=== PATIENT | male | born 1945 | race Caucasian/White ===

== ENCOUNTER 2019-01-17 14:51 | Inpatient (IN) | payer BC, OTHER ==
[~2019-01-17] VITALS: Ht 167.6 cm; Wt 79.8 kg
[2019-01-17 14:57] VITALS: Ht 167.6 cm; Wt 79.8 kg
[2019-01-17 15:35] LABS: BASOPHIL % 0.3 % (0-2); PLATELET COUNT 316 x10^3mcL (130-400)
--- NOTE | 2019-01-17 15:36 | NUR ---
10MG CARDIZEM GIVEN @ 1526, INEFFECTIVE HR 122-155. 2ND CARDIZEM TO BE GIVEN
[2019-01-17 15:37] LABS: CALCIUM 9.7 mg/dL (8.5-10.1); CARBON DIOXIDE 25.5 mmol/L (21-32); CHLORIDE SERUM 100 mmol/L (98-107); CREATININE SERUM 1.3 mg/dL (0.7-1.3); GLUCOSE SERUM 285 mg/dL (74-106); POTASSIUM SERUM 4.1 mmol/L (3.5-5.1); SODIUM SERUM 137 mmol/L (136-145)
[2019-01-17 15:44] LABS: ALKALINE PHOSPHATASE 104 U/L (46-116); ALT/SGPT 28 U/L (16-63); AST/SGOT 24 U/L (15-37); BILIRUBIN TOTAL 1.71 mg/dL (0.20-1.00); TOTAL PROTEIN, SERUM 7.9 g/dL (6.4-8.2)
--- NOTE | 2019-01-17 15:50 | NUR ---
2ND CARDIZEM DOSE GIVEN, INEFFECTIVE. 3RD TO BE GIVEN
[2019-01-17 15:55] LABS: ALBUMIN 3.2 g/dL (3.4-5.0)
--- NOTE | 2019-01-17 16:05 | NUR ---
DR. HOLLAND AND PRIMARY NURSE MARIANNE INFORMED OF LACTIC ACID 2.6
--- NOTE | 2019-01-17 16:15 | NUR ---
2ND CARDIZEM GIVEN @ 1605, INEFFECTIVE HR 118-149. 3RD DOSE TO BE GIVEN IF I INEFFECTIVE, START DRIP PER .
--- NOTE | 2019-01-17 16:36 | NUR ---
10MG LABETALOL GIVEN, INEFFECTIVE.
--- NOTE | 2019-01-17 16:36 | NUR ---
3RD CARDIZEM GIVEN, INEFFECTIVE. HOLD DRIP AND TO GIVEN LABETALOL 10MG. BEGIN CARDIZEM DRIP IF INEFFECTIVE
--- NOTE | 2019-01-17 16:40 | NUR ---
JAYSHREE: TO GO AHEAD AND START DRIP. PT WILL BE GOING TO ICU
--- NOTE | 2019-01-17 17:28 | NUR ---
TITRATION CARDIZEM 10MG/HR.
--- NOTE | 2019-01-17 17:30 | NUR ---
PT TO CT VIA CRISTINA GARRIDO PROTOCOLS. JAYSHREE DRIP AND MONITOR. RN AT BEDSIDE
--- NOTE | 2019-01-17 17:54 | NUR ---
PT RETURN FROM CT. NO S/S OF DISTRESS NOTED. RN WILL INCREASE CARDIZEM DRIP TO 15MG/HR MAX DOSAGE. MADE AWARE
[2019-01-17] MEDS ORDERED: LANTUS SOLOS100 U/M1 SQ (18:51)
[2019-01-17] MEDS ORDERED: GLYBURIDE AND M PO (18:52)
[2019-01-17] MEDS ORDERED: VICTOZA6 MG/M1 SQ (18:52)
[2019-01-17] MEDS ORDERED: LIPI20 PO (18:53)
[2019-01-17] MEDS ORDERED: COZAAR100 MG PO (18:53)
[2019-01-17] MEDS ORDERED: NOR10 PO (18:53)
[2019-01-17] MEDS ORDERED: TOPROL XL100 MG PO (18:54)
[2019-01-17] MEDS ORDERED: ASPIR 8181 MG PO (18:54)
[2019-01-17] MEDS ORDERED: ELIQUIS2.5 MG PO (18:54)
[2019-01-17] MEDS ORDERED: PRE30 PO (18:55)
[2019-01-17] MEDS ORDERED: MULTIVITAMIN1 SGL PO (18:55)
[2019-01-17] MEDS ORDERED: PHARMASSURE VI500 MG PO (18:56)
[2019-01-17] MEDS ORDERED: NATURE'S BLEND400 IU PO (18:56)
[2019-01-17] MEDS ORDERED: VITAMIN A10000 UNI1 PO (18:57)
--- NOTE | 2019-01-17 18:59 | NUR ---
MED REC COMPLETED USING LIST IN PT'S PHONE. PT STATES TAKING VITAMIN A INSTEAD OF EYE HEALTH TAB PT STATES ELIQUIS DOSE ON PHONE IS LIKELY MISPRINT
[2019-01-17] MEDS ORDERED: ZOF4 PO (19:00)
[2019-01-17] MEDS ORDERED: NOR10T PO (19:00)
--- NOTE | 2019-01-17 19:00 | NUR ---
REPORT GIVEN TO MADELEINE NETTLES
[2019-01-17] MEDS ORDERED: TYLENOL PO (19:01)
[2019-01-17] MEDS ORDERED: LIDC TOP (19:01)
[2019-01-17] MEDS ORDERED: [UNRECOGNIZED DRUG - OTHER] TOP (19:02)
[2019-01-17] MEDS ORDERED: HYDROCHLOROTH12.5 M2 PO (19:03)
[2019-01-17] MEDS ORDERED: LUMIGAN2.5 M1 OU (19:04)
[2019-01-17] MEDS ORDERED: ELIQUIS5 MG PO (19:06)
--- NOTE | 2019-01-17 19:07 | NUR ---
AFTER COMPLETING MED REC OFF LIST OFF PT'S PHONE, PT SHOWED ME MED REC FROM RECENT DISCHARGE & STATES IT IS MORE CURRENT. CHANGES MADE TO [facility] REC.
--- NOTE | 2019-01-17 19:20 | NUR ---
REPORT GIVEN BY AGENCY, RN FOR CONTINUED CARE OF PATIENT.
[2019-01-17 19:25] LABS: microscopic required? NO
[2019-01-17 19:29] LABS: CHOLESTEROL/HDL RATIO 3.9; MAGNESIUM 1.7 mg/dL (1.8-2.4); PHOSPHOROUS 3.8 mg/dL (2.5-4.9)
[2019-01-17 19:30] LABS: UA SPECIFIC GRAVITY <=1.005 (1.005-1.035); urine erythrocyte NEGATIVE (NEGATIVE)
[2019-01-17 19:39] LABS: FREE T4 1.81 ng/dL (0.76-1.46); FREE THYROXINE INDEX 3.6 ug/dL (1.4-4.5); T4(THYROXINE) 9.6 ug/dL (4.7-13.3)
[2019-01-17 19:47] LABS: AMPHETAMINE QUAL UR NONE DETECTED (See below)
[2019-01-17 19:56] LABS: T3 TOTAL 0.81 ng/mL
--- NOTE | 2019-01-17 20:38 | NUR ---
PROVIDED REPORT TO THO MARIE FOR CONTINUED CARE OF PATIENT.
--- NOTE | 2019-01-17 20:50 | NUR ---
PT IS ALERT AND ORIENTED X4. PERRLA PRESENT. PT IS BREATHING E.U ON 2L NC. PULSES ARE MODERATE X4. CAP REFILL <3 SECONDS X4. SKIN IS WARM AND CONSISTENT WITH ETHNICITY. PERIPHERAL IV TO LFA AND RAC PATENT, DRESSING CDI. CARDIZEM INFUSING AT 15 MG/HR. S1 S2 HEART SOUNDS AUSCULTATED, SINUS TACHY. ABD IS SOFT AND ROUNDED WITH ACTIVE BOWEL SOUNDS X4Q. PT VOIDS FREELY USING URINAL. PT HAS SURIGICAL INCISION TO LEFT KNEE AFTER KNEE REPLACEMENT. PRASANTH IN PLACE, DRESSING CDI. KNEE IS HOT AND RED, BUT ALL DIAGNOSTICS NEGATIVE. ALL QUESTIONS AND CONCERNS ANSWERED. WILL CONTINUE TO MONITOR.
[2019-01-17 22:27] VITALS: BP 134/87
--- NOTE | 2019-01-17 23:07 | NUR ---
RT AT BEDSIDE FOR EKG.
--- NOTE | 2019-01-18 03:30 | NUR ---
SPOKE TO DR. FERREIRA. DOCTOR STATED THAT IF THE HR REMAINS CONSISTENTLY ABOVE 130, THEN TO CALL HIM TO POSSIBLY CHANGE CARDIZEM TO AMIODARONE.
[2019-01-18 05:22] LABS: BASOPHIL % 0.3 % (0-2); PLATELET COUNT 324 x10^3mcL (130-400); RED CELL DISTRIBUTION WIDTH 14.2 % (11.5-14.5)
--- NOTE | 2019-01-18 05:41 | NUR ---
PARKING ASSISTANT AT BEDSIDE FOR ASSESSMENT. ALL QUESTIONS AND CONCERNS ANSWERED.
[2019-01-18 06:04] LABS: CALCIUM 9.4 mg/dL (8.5-10.1); CARBON DIOXIDE 24.6 mmol/L (21-32); CHLORIDE SERUM 102 mmol/L (98-107); CREATININE SERUM 1.1 mg/dL (0.7-1.3); GLUCOSE SERUM 178 mg/dL (74-106); MAGNESIUM 1.6 mg/dL (1.8-2.4); PHOSPHOROUS 3.5 mg/dL (2.5-4.9); POTASSIUM SERUM 3.9 mmol/L (3.5-5.1); SODIUM SERUM 139 mmol/L (136-145)
--- NOTE | 2019-01-18 07:15 | NUR ---
RECEIVED PT'S REPORT FROM LEAVING NURSE. PT REST ON BED, EASILY AROUSABLE VIA AUDITORY STIMULI. PT DENIED CHEST PAIN AND PAPITATION. PT BREATHING ON RA, EVEN, UNLABORED. NO COMPLAIN OF PAIN AT THIS TIME. PT IS ON CARDIZEN 15MG/HR, HR AROUND 100 BPM. NS 100ML/HR INFUSING. WILL CONTINUE TO MONITOR.
[2019-01-18 07:51] VITALS: BP 146/72
--- NOTE | 2019-01-18 07:51 | NUR ---
ECHOCARDIOGRAM PENDING-HAVING BREAKFAST
--- NOTE | 2019-01-18 10:05 | NUR ---
PT'S AT BED SIDE. PT'S HR STABLE AROUND 80-90. DECREASED CARDIZEN FROM 15MG/HR TO 10MG/HR. PT DENIED ANY CHEST DISCOMFORT. WILL CONTINUE TO MONITOR.
--- NOTE | 2019-01-18 10:47 | NUR ---
PT'S HR STABLE AROUND 80-90 BPM, DECREASED CARDIZEN DRIP FROM 10MG/HR TO 5MG/HR. WILL CONTINUE TO MONITOR.
--- NOTE | 2019-01-18 11:07 | NUR ---
DR FERRIS AND RESIDENTS ROUNDING. PATIENT AND PROVIDED UPDATES BEDSIDE WITH ALL QUESTIONS AND CONCERNS ADDRESSED.
--- NOTE | 2019-01-18 12:00 | NUR ---
PT COMPLAIN OF INCREASING PAIN ON L KNEE. NORCO GIVEN PER PRN ORDER.
[2019-01-18 12:01] VITALS: BP 133/72
--- NOTE | 2019-01-18 13:04 | NUR ---
PT'S HR STABLE, 72 BPM, STOP CARDIZEN DRIP AT THIS TIME. PT DENIED CHEST DISCOMFORT. WILL CONTINUE TO MONITOR.
--- NOTE | 2019-01-18 15:09 | NUR ---
DR PRESLEY AT BEDSIDE TO ASSESS PATIENT. UPDATES PROVIDED BY NURSING. NO CHANGE IN ORDERS. WILL CONTINUE TO MONITOR.
[2019-01-18 16:46] VITALS: BP 130/79
--- NOTE | 2019-01-18 17:34 | NUR ---
PT IS GOING TO TRANSFER TO [facility] [address]. PT'S REPORT GIVEN TO RECEIVING NURSE IGOR. PT WILL BE TRANSFERED VIA WHEELCHAIR WITH TELE MONITOR.
[2019-01-18 17:55] VITALS: BP 130/67
--- NOTE | 2019-01-18 17:55 | NUR ---
RECEIVED PT FROM ICU. PT ARRIVED TO UNIT IN WHEELCHAIR. PT AWAKE, ALERT A/OX4. PT ON ROOM AIR WITH NO RESP DISTRESS NOTED, LUNGS CTA. IV ACCESS LFA/RAC CDI. PERIPHERAL PULSES PALPABLE, NO EDEMA NOTED. ACTIVE BOWEL SOUNDS NOTED, PT REPORTS NO BM X 8 DAYS. NO ABDOMINAL PAIN NOTED. NO ISSUES URINATING. PT S/P LEFT KNEE REPLACEMENT 6 DAYS AGO, BANDAGE C/D/I, PAIN TOLERABLE AT THIS TIME. PT MEDICATED IN ICU BEFORE TRANSFER. PT ORIENTED TO ROOM. FAMILY AT BEDSIDE. SAFETY MEASURES IN PLACE, BED LOW AND LOCKED. CALL LIGHT WITHIN REACH.
--- NOTE | 2019-01-18 18:33 | NUR ---
PT STABLE AT THIS TIME. NO ACUTE DISTRESS NOTED. WILL CONTINUE TO MONITOR AND ENDORSE CARE TO MAINTENANCE FITTER.
--- NOTE | 2019-01-18 19:25 | NUR ---
CARE ASSUMED FROM OUTGOING RN. PT RESTING COMFORTABLY IN BED. FAMILY AT BEDSIDE. NO ACUTE DISTRESS NOTED. EVEN AND UNLABORED RESPIRATIONS ON RA. ON TELE #7. IVS INTACT. DRESSING TO LEFT KNEE CDI, ELEVATED WITH PILLOW. BED IN LOWEST POSITION. SIDE RAILS UPX2. WILL CONTINUE TO MONITOR.
[2019-01-18 20:39] VITALS: BP 123/70
--- NOTE | 2019-01-19 00:13 | NUR ---
PT RESTING COMFORTABLY IN BED. AT BEDSIDE. EVEN AND UNLABORED RESPITATIONS ON RA. IVS PATENT AND INTACT, PT REQUESTED FOR ONE IV TO BE REMOVED. INFORMED PT THERE WILL BE POSSIBILITY OF REINSERTING ANOTHER IV IF ONE WAS TO GO BAD. PT OPTED TO KEEP BOTH IV. PT C/O PAIN TO LEFT KNEE. MEDICATED PER EMAR. BED IN LOWEST POSITION. SIDE RAILS UPX2. CALL LIGHT WITHIN REACH. WILL CONTINUE TO MONITOR.
[2019-01-19 05:04] VITALS: BP 123/64
--- NOTE | 2019-01-19 06:20 | NUR ---
PT SLEPT COMFORTABLY IN INTERVALS THROUGHOUT THE SHIFT. IS AT BEDSIDE. NO ACUTE CHANGES NOTED. EVEN AND UNLABORED RESPIRTAIONS ON RA. ON TELE #7 READING SR 82. IVS SALINE LOCKED, PATENT AND INTACT. ALL NEEDS TENDED TO AND MET. ALL SCHEDULED MEDICATIONS GIVEN. C/O LEFT KNEE PAIN MEDICATED PER EMAR. BLOOD SUGARS CHECKED, 169 AND 164, COVERED PER SLIDING SCALE. LEFT KNEE INCISION, CDI. BED IN LOWEST POSITION. SIDE RAILS UPX2. CALL LIGHT WITHIN REACH. WILL ENDORSE TO ONCOMING SHIFT.
[2019-01-19 06:26] LABS: BASOPHIL % 0.4 % (0-2); PLATELET COUNT 353 x10^3mcL (130-400); RED CELL DISTRIBUTION WIDTH 14.3 % (11.5-14.5)
--- NOTE | 2019-01-19 07:30 | NUR ---
PT ENDORSE TO ME THIS MORNING, SITTING UP IN BED. AA/O X4, BREATHING EVEN AND UNLABORED ON RA, NO ACUTE RESP DISTRESS OR SOB NOTED/ LUNGS CLEAR. TELE 7 SR NOTED.PULSES PRESENT TO BLE/ L KNEE REAPLACEMENT X6 DAYS AGO STABLES AND BANDAGE INPLACE, CDI/ EDEMA NOTED TO KNEE. GEN WEAKNESS DUE TO L KNEE REPLACEMENT/ USES WALKER AT HOME FOR SP SX. IS C/ O L KNEEE PAIN, WILL MEDICATE. IV TO THE LFA AND RAC BOTH INTACT AND PATENT. WILL CONTINUE TO MONITOR. AT BEDSIDE.
[2019-01-19 08:00] LABS: CALCIUM 9.3 mg/dL (8.5-10.1); CARBON DIOXIDE 26.8 mmol/L (21-32); CHLORIDE SERUM 103 mmol/L (98-107); CREATININE SERUM 1.1 mg/dL (0.7-1.3); GLUCOSE SERUM 177 mg/dL (74-106); MAGNESIUM 1.9 mg/dL (1.8-2.4); PHOSPHOROUS 3.1 mg/dL (2.5-4.9); SODIUM SERUM 140 mmol/L (136-145)
[2019-01-19 08:10] VITALS: BP 115/76
--- NOTE | 2019-01-19 08:11 | NUR ---
PT C/O LEFT LEG PAIN 3/10, MEDICATED PER EMAR.
[2019-01-19 09:04] VITALS: BP 138/77
[2019-01-19 11:52] VITALS: BP 116/69
--- NOTE | 2019-01-19 16:03 | NUR ---
PT TOLERATED 100% OF HIS LUNCH. IS C/O LEFT KNEE PAIN, WILL MEDICATED PER EMAR.
[2019-01-19 16:07] VITALS: BP 128/77
--- NOTE | 2019-01-19 17:54 | NUR ---
PER PT REQUEST CHANGED DRSG TO L KNEE/TOLERATED WELL/ PRASANTH INTACT, NO REDNESS OR SWELLING NOTED/ NO NEW DRAINAGE NOTED.
--- NOTE | 2019-01-19 18:55 | NUR ---
NO ACUTE CHANGES AT THIS TIME, NO ACUTE RESP DISTRESS OR SOB NOTED. DENIES ANY CP OR PRESSURE OR L KNEE PAIN. AT BEDSIDE. WILL ENDORSE TO INCOMING RN.
--- NOTE | 2019-01-19 19:15 | NUR ---
CARE ASSUMED FROM OUTGOING RN. PT RESTING COMFORTABLY IN BED. NO ACUTE DISTRESS NOTED. EVEN AND UNLABORED RESPIRTAION ON RA. ON TELE #7 READING SR 78. IVL INTACT. DENIES ANY PAIN AT THIS TIME. DRESSING TO LEFT KNEE CDI. BED IN LOWEST POSITION. SIDE RAILS X2. CALL LIGHT WITHIN REACH. WILL CONTINUE TO MONITOR.
[2019-01-19 21:08] VITALS: BP 113/74
--- NOTE | 2019-01-20 01:44 | NUR ---
PT ASLEEP COMFORTABLY IN BED. AT BEDSIDE. NO ACUTE DISTRESS NOTED. EVEN AND UNLABORED RESPIRATIONS ON RA. ON TELE #7 READING SR 83. IVL PATENT AND INTACT. LLE ELEVATED ON PILLOW. DRESSING TO LEFT KNEE CDI. BED IN LOWEST POSITION. SIDE RAILS UPX2. CALL LIGHT WITHIN REACH. WILL CONTINUE TO MONITOR.
[2019-01-20 05:57] VITALS: BP 133/76
--- NOTE | 2019-01-20 06:27 | NUR ---
PT SLEPT COMFORTABLY IN INTERVALS THROUGOUT THE SHIFT. AT BEDSIDE. EVEN AND UNLABORED RESPIRATIONS ON RA. ON TELE# 7 READING SR 89. IVL PATENT AND INTACT. ALL NEEDS TENDED TO AND MET. ALL SCHEDULED MEDICATIONS GIVEN. C/O PAIN TO LEFT KNEE MEDICATED PER EMAR THROUGHOUT THE SHIFT. DRESSING TO LEFT KNEE CDI. BLOOD SUGAR COVERED PER SLIDING SCALE. BED IN LOWEST POSITION. SIDE RAILS UPX2. CALL LIGHT WITHIN REACH. WILL ENDORSE TO ONCOMING SHIFT.
[2019-01-20 06:33] LABS: CALCIUM 9.2 mg/dL (8.5-10.1); CARBON DIOXIDE 24.6 mmol/L (21-32); CHLORIDE SERUM 102 mmol/L (98-107); CREATININE SERUM 1.1 mg/dL (0.7-1.3); GLUCOSE SERUM 203 mg/dL (74-106); MAGNESIUM 1.8 mg/dL (1.8-2.4); POTASSIUM SERUM 4.3 mmol/L (3.5-5.1); SODIUM SERUM 139 mmol/L (136-145)
--- NOTE | 2019-01-20 06:40 | NUR ---
PT AMBULATING WITH SLOW GAIT DOWN THE HALLWAY USING A WALKER. AT HIS SIDE. TOLERATING WELL AT THIS TIME. WILL CONTINUE TO MONITOR.
[2019-01-20 06:45] LABS: BASOPHIL % 0.7 % (0-2); RED CELL DISTRIBUTION WIDTH 14.3 % (11.5-14.5)
[2019-01-20 06:52] LABS: PLATELET COUNT 410 x10^3mcL (130-400)
--- NOTE | 2019-01-20 07:35 | NUR ---
PT ENDORSE TO ME THIS MORNING, SITTING UP IN BED, AA/O X4, BREATHING EVEN AND UNLABORED ON RA. NO ACUTE RESP DISTRESS OR SOB NOTED.TELE 7 SR NOTED, HR 88/ DENIES ANY CP OR PRESSURE. VOIDS FREELY. PER PT ONLY PASSING GAS. L KNEE ELEVATED ON PILLOW, DRSG CDI. IV TO THE LAC INTACT AND PATENT/ HEPLOCKED, NO REDNESS OR SWELLING NOTED. WILL CONTINUE TO MONITOR, AT BEDSIDE.
[2019-01-20] MEDS ORDERED: ELIQUIS2.5 MG PO (08:03)
[2019-01-20 08:16] VITALS: BP 130/73
--- NOTE | 2019-01-20 08:57 | NUR ---
PT C/O L KNEE PAIN, MEDICATED PER EMAR.
--- NOTE | 2019-01-20 10:16 | NUR ---
PER OCCUPATIONAL HEALTH PHYSICIAN MUTUC ORDERS GAVE PT MILK OF MAG TO ASSIST WITH BM. PT TOLERATED MED OK. WILL CONTINUE TO MONITOR.
[2019-01-20 10:34] VITALS: BP 142/73
[2019-01-20] MEDS ORDERED: EPZICOM1 TAB (11:03)
--- NOTE | 2019-01-20 11:51 | NUR ---
EXPLAINED DISCHARGE INSTRUCTIONS, CONTINUED MEDS AND FOLLOW UP APPT PT MUST MAKE WITH PRIMARY DOCTOR, PT AGREED AND SIGNED ALL DOCUMENTS. REMOVED IV TO THE LAC, CATHETER TIP INTACT, NO REDNESS OR SWELLING NOTED/ TOLERATED REMOVAL WELL. REMOVED TELE 7 AND RETURNED BACK TO TELE. WILL CALL ONCE HE IS DRESSED.
--- NOTE | 2019-01-20 12:00 | NUR ---
SERGE RL WHEELED PT DOWN TO FRONT OF HOSPITAL, WILL BE DRIVING PT HOME. PT DENIES ANY CP OR PRESSURE OR DISCOMFORT TO L KNEE. PT IS CLEAR ON HAVING TO CALL PRIM DOC FOR FOLLOW UP APPT AND EDUCATED THE IMPORTANCE OF KEEPING L KNEE WOUND CDI/ DRSG IN CDI AND STATED WILL BE FOLLOWING UP WITH DOC FOR HIS LEFT KNEE WOUND. PT BREATHING EVEN AND UNLABORED ON RA, NO ACUTE RESP DISTRESS OR SOB NOTED. PT DISCHARGE.
== END 2019-01-20 12:38 | disposition home or self-care (01) | DRG 309 ==
LOC: ED 14:51 → IC 18:00 → DU 18:00 → IC 19:17 → DU 01-18 17:50
PROVIDERS: Emergency Medicine; ADMIT General Practice
DX: I48.0 Paroxysmal atrial fibrillation (principal); E87.2 Acidosis; E44.0 Moderate protein-calorie malnutrition; I10 Essential (primary) hypertension; E11.9 Type 2 diabetes mellitus without complications; Z96.652 Presence of left artificial knee joint; E78.5 Hyperlipidemia, unspecified; K21.9 Gastro-esophageal reflux disease without esophagitis; H54.40 Blindness, one eye, unspecified eye; K59.00 Constipation, unspecified; E83.42 Hypomagnesemia; D64.9 Anemia, unspecified; I27.20 Pulmonary hypertension, unspecified; I25.10 Atherosclerotic heart disease of native coronary artery without angina pectoris; Z95.5 Presence of coronary angioplasty implant and graft; Z88.2 Allergy status to sulfonamides; Z90.49 Acquired absence of other specified parts of digestive tract; Z68.28 Body mass index [BMI] 28.0-28.9, adult
CPT/HCPCS: 82962; 83880; 84439; 85378; G0378; J3475; J3490; J7030; J7040; Q0092; Q9967